=== PATIENT | male | born 1940 | race Caucasian/White ===

== ENCOUNTER 2022-10-30 12:30 | Emergency (ER) | payer MEDICARE ==
[~2022-10-30] VITALS: Ht 172.7 cm; Wt 117.9 kg
[2022-10-30 14:05] LABS: BASOPHILS % (AUTO) 0.8 % (0.0-5.0); EOSINOPHILS % (AUTO) 1.9 % (0.0-8.0); HEMATOCRIT 48.5 % (42-54); LYMPHOCYTES % (AUTO) 30.4 % (21.0-51.0); MEAN CORPUSCULAR HEMOGLOBIN 29.6 pg (27.0-33.0); MEAN CORPUSCULAR HGB CONC 32.4 g/dL (32.0-36.0); MEAN CORPUSCULAR VOLUME 91.5 fL (79-99); MONOCYTES % (AUTO) 7.8 % (3.0-13.0); NEUTROPHILS % (AUTO) 58.5 % (40.0-77.0); PLATELET COUNT (AUTO) 169 K/uL (130-400); RED CELL DISTRIBUTION WIDTH 14.3 % (11.0-15.5); WHITE BLOOD COUNT (AUTO) 5.3 K/uL (4.8-10.8)
[2022-10-30 14:09] VITALS: BP 160/73
[2022-10-30 14:12] LABS: CREATININE 1.6 mg/dL (0.5-1.5); POTASSIUM 4.9 mmol/L (3.5-5.1)
[2022-10-30 14:17] LABS: ALBUMIN 3.9 g/dL (3.5-5.0); TOTAL PROTEIN, SERUM 7.8 g/dL (6.0-8.3)
[2022-10-30 14:56] LABS: B-TYPE NATRIURETIC PEPTIDE 46 pg/mL (0-100)
[2022-10-30 15:38] LABS: APPEARANCE,URINE CLEAR (CLEAR); BILIRUBIN,URINE NEGATIVE (NEGATIVE); COLOR,URINE LIGHT-YELLOW (YELLOW); GLUCOSE, URINE (UA) NEGATIVE (NEGATIVE); KETONES,URINE NEGATIVE (NEGATIVE); LEUKOCYTE ESTERASE ,URINE 25 Leu/uL (NEGATIVE); NITRATE,URINE NEGATIVE (NEGATIVE); OCCULT BLOOD,URINE NEGATIVE (NEGATIVE); PROTEIN,URINE NEGATIVE (NEGATIVE); UROBILINOGEN,URINE 0.2 mg/dL (0.2-1.0)
[2022-10-30 15:43] LABS: RBC,URINE 0-1 /HPF (0-1)
[2022-10-30] MEDS ORDERED: 0.9%NACL 1000ML IV ONE (15:52)
[2022-10-30] MEDS ORDERED: 0.9%NACL 1000ML 1,000 ML IV ONE (16:00)
[2022-10-30] MEDS ORDERED: CEFTRIAXONE 2GM VIAL IVP STA (16:11)
[2022-10-30] MEDS ORDERED: KETOROLAC 30MG VIAL (30MG/ML) ONE (17:35)
[2022-10-30] MEDS ORDERED: KETOROLAC 30MG VIAL (30MG/ML) IVP ONE (18:00)
[2022-10-30] MEDS ORDERED: NAPR375T6 PO (18:09)
[2022-10-30] MEDS ORDERED: CEPH500B PO (18:09)
[2022-11-06 14:11] LABS: B.BURGOR (LYME) IGG WB INTERP Negative (.); LYME IGM-WB INTERP Negative (.); LYME IGM-WB P23 AB Absent (.); LYME IGM-WB P39 AB Absent (.); LYME IGM-WB P41 AB Absent (.)
== END 2022-10-30 18:26 | disposition home or self-care (01) ==
LOC: EDH 12:30
DX: K08.89 Other specified disorders of teeth and supporting structures (principal); A69.20 Lyme disease, unspecified; E11.9 Type 2 diabetes mellitus without complications; I10 Essential (primary) hypertension; I25.10 Atherosclerotic heart disease of native coronary artery without angina pectoris; Z95.1 Presence of aortocoronary bypass graft; Z79.899 Other long term (current) drug therapy; Z20.822 Contact with and (suspected) exposure to COVID-19
CPT/HCPCS: 99285; 96374; 96361; 70450; 87635; 96375; 84484; 80053; 83880; 85025; 87804 ×2; 86000; 81001; 36415; 93005; C9803; J7030; J0696; J1885

== ENCOUNTER 2022-11-03 08:24 | Observation (INO) | payer MEDICARE ==
[~2022-11-03] VITALS: Ht 172.7 cm; Wt 118.4 kg
[~2022-11-03 08:24] MED LIST: CEPH500B PO; NAPR375T6 PO
[2022-11-03] MEDS ORDERED: LIDOCAINE HCL 2% VISCOUS 15 ML UDCUP ONE (08:36)
[2022-11-03 09:02] LABS: BASOPHILS % (AUTO) 0.4 % (0.0-5.0); EOSINOPHILS % (AUTO) 0.7 % (0.0-8.0); HEMATOCRIT 50.5 % (42-54); LYMPHOCYTES % (AUTO) 18.9 % (21.0-51.0); MEAN CORPUSCULAR HEMOGLOBIN 29.4 pg (27.0-33.0); MEAN CORPUSCULAR HGB CONC 32.3 g/dL (32.0-36.0); MONOCYTES % (AUTO) 7.2 % (3.0-13.0); NEUTROPHILS % (AUTO) 72.6 % (40.0-77.0); PLATELET COUNT (AUTO) 163 K/uL (130-400); RED BLOOD CELL COUNT(AUTO) 5.55 MIL/uL (4.50-6.20); RED CELL DISTRIBUTION WIDTH 14.2 % (11.0-15.5); WHITE BLOOD COUNT (AUTO) 5.6 K/uL (4.8-10.8)
[2022-11-03] MEDS ORDERED: MORPHINE 2 MG SYG ONE (09:17)
[2022-11-03] MEDS ORDERED: ONDANSETRON 4MG INJ ONE (09:17)
[2022-11-03 09:20] LABS: ALBUMIN 4.2 g/dL (3.5-5.0); CREATININE 1.5 mg/dL (0.5-1.5); POTASSIUM 4.1 mmol/L (3.5-5.1); TOTAL PROTEIN, SERUM 7.8 g/dL (6.0-8.3)
[2022-11-03] MEDS ORDERED: MORPHINE 2 MG SYG IVP ONE ×3 (09:30→16:00)
[2022-11-03] MEDS ORDERED: ONDANSETRON 4MG INJ IVP ONE (09:30)
[2022-11-03] MEDS ORDERED: LISI10TA24 PO (16:27)
[2022-11-03] MEDS ORDERED: PANT40GR PO (16:27)
[2022-11-03] MEDS ORDERED: GLIP10TA9 PO (16:27)
[2022-11-03] MEDS ORDERED: ACET-66 PO (16:27)
[2022-11-03] MEDS ORDERED: LISI20TA24 PO (16:27)
[2022-11-03] MEDS ORDERED: INSU100I26 SQ (16:30)
[2022-11-03] MEDS ORDERED: ONDANSETRON 4MG INJ IV PRN (16:30)
[2022-11-03] MEDS ORDERED: LACTULOSE 20 GM/30 ML UDCUP PO PRN (16:30)
[2022-11-03] MEDS ORDERED: HYDRALAZINE 20MG/ML VIAL IV PRN (16:30)
[2022-11-03] MEDS ORDERED: ACETAMINOPHEN 325 MG TAB PO PRN ×2 (16:30)
[2022-11-03] MEDS ORDERED: DEXTROSE 50%-WATER 50 ML DISP.SYRIN IV PRN (17:00)
[2022-11-03] MEDS ORDERED: GLUCAGON 1MG KIT 1 MG ML IM PRN (17:00)
[2022-11-03] MEDS: CLINDAMYCIN IVPB 600MG/50ML 50 ML IV SCH ×2 (18:00→23:32)
[2022-11-03] MEDS ORDERED: MORPHINE 2 MG SYG IVP PRN (18:30)
[2022-11-03] MEDS: HYDROMORPHONE 0.5 MG SYG (0.5MG/0.5ML) IVP PRN (19:56)
[2022-11-03] MEDS: INSULIN HUMULIN R 100 UNIT/ML 3ML SQ SCH (20:22)
[2022-11-03 20:35] VITALS: BP 146/71
[2022-11-04] VITALS: BP 127/64
[2022-11-04] MEDS: HYDROMORPHONE 0.5 MG SYG (0.5MG/0.5ML) IVP PRN ×2 (01:56→08:07)
[2022-11-04 04:00] VITALS: BP 124/72
[2022-11-04 06:26] LABS: BASOPHILS % (AUTO) 0.9 % (0.0-5.0); EOSINOPHILS % (AUTO) 2.1 % (0.0-8.0); HEMATOCRIT 50.3 % (42-54); LYMPHOCYTES % (AUTO) 28.1 % (21.0-51.0); MEAN CORPUSCULAR HEMOGLOBIN 29.6 pg (27.0-33.0); MEAN CORPUSCULAR HGB CONC 32.8 g/dL (32.0-36.0); MEAN CORPUSCULAR VOLUME 90.1 fL (79-99); MONOCYTES % (AUTO) 7.8 % (3.0-13.0); NEUTROPHILS % (AUTO) 60.6 % (40.0-77.0); PLATELET COUNT (AUTO) 184 K/uL (130-400); RED BLOOD CELL COUNT(AUTO) 5.58 MIL/uL (4.50-6.20); RED CELL DISTRIBUTION WIDTH 14.5 % (11.0-15.5); WHITE BLOOD COUNT (AUTO) 5.8 K/uL (4.8-10.8)
[2022-11-04 06:37] LABS: CREATININE 1.8 mg/dL (0.5-1.5); POTASSIUM 4.5 mmol/L (3.5-5.1)
[2022-11-04] MEDS: INSULIN HUMULIN R 100 UNIT/ML 3ML SQ SCH ×2 (06:59→11:30)
[2022-11-04 08:00] VITALS: BP 131/75
[2022-11-04] MEDS: CLINDAMYCIN IVPB 600MG/50ML 50 ML IV SCH (08:05)
[2022-11-04] MEDS ORDERED: LISINOPRIL 10 MG TABLET PO SCH (09:00)
[2022-11-04] MEDS ORDERED: ENOXAPARIN SODIUM 40 MG/0.4 ML SYRINGE SQ SCH (09:00)
[2022-11-04] MEDS ORDERED: PANTOPRAZOLE 40 MG/VIAL IVP SCH (09:00)
[2022-11-04] MEDS ORDERED: CLIN-141 PO (11:45)
[2022-11-04] MEDS ORDERED: ACET-2079 PO (11:45)
[2022-11-04 12:00] VITALS: BP 131/73
== END 2022-11-04 13:30 | disposition home or self-care (01) ==
LOC: EDH 08:24 → INTOOBSV 16:30 → EDHIP 16:30 → 3CH 20:27
PROVIDERS: ADMIT Hospitalist; ATTEND Hospitalist
DX: K04.7 Periapical abscess without sinus (principal); H49.02 Third [oculomotor] nerve palsy, left eye; I10 Essential (primary) hypertension; E78.5 Hyperlipidemia, unspecified; E66.9 Obesity, unspecified; I25.10 Atherosclerotic heart disease of native coronary artery without angina pectoris; E11.65 Type 2 diabetes mellitus with hyperglycemia; Z68.39 Body mass index [BMI] 39.0-39.9, adult; Z95.1 Presence of aortocoronary bypass graft; Z79.899 Other long term (current) drug therapy
CPT/HCPCS: 96376 ×2; 96365; 96366 ×2; 96375 ×2; 99285; 80053; 85025 ×2; 87040 ×2; 82948 ×3; 86140; 36415 ×2; 70486; 70551; 70544; 70540; 84145; 96372; 80048; G0378 ×21; J2405; J3490 ×3; J1170 ×3; C9113; J1650